=== PATIENT | female | born 1990 | race Caucasian/White ===

== ENCOUNTER 2024-10-13 05:45 | Inpatient (IN) | payer OTHER ==
[2024-10-13] MEDS: LACTATED RINGERS SOLUTION 500 ML IV SCH (06:20)
[2024-10-13 06:30] VITALS: BMI 34.9
[2024-10-13] MEDS: LACTATED RINGERS SOLUTION 1,000 ML IV SCH (06:50)
[2024-10-13] MEDS: CITRIC ACID/SODIUM CITRATE 30 ML UNIT-DOSE CUP PO ONE (07:00)
[2024-10-13] MEDS ORDERED: PHENYLEPHRINE HCL 10 MG/1 ML SINGLE DOSE VIAL ONE (07:48)
[2024-10-13] MEDS ORDERED: ceFAZolin SODIUM 1 GM VIAL ONE (07:48)
[2024-10-13] MEDS ORDERED: morphine SULFATE/PF 1 MG/2 ML (2cc Syringe - QUVA) ONE (07:48)
[2024-10-13] MEDS ORDERED: KETOROLAC TROMETHAMINE 30 MG/1 ML VIAL ONE (07:48)
[2024-10-13] MEDS ORDERED: OXYTOCIN 10 UNITS/ML VIAL ONE (07:48)
[2024-10-13] MEDS ORDERED: ONDANSETRON 4 MG/2 ML VIAL ONE (07:48)
[2024-10-13] MEDS ORDERED: FENTANYL CITRATE/PF 50 MCG/ML VIAL ONE (07:49)
[2024-10-13] MEDS ORDERED: ACETAMINOPHEN 325 MG TABLET (FP) PO PRN (10:11)
[2024-10-13] MEDS ORDERED: IBUPROFEN 800 MG/8 ML IJ IVPB PRN (10:11)
[2024-10-13] MEDS: METHYLERGONOVINE MALEATE 0.2 MG/1 ML AMP IM PRN (12:06)
[2024-10-13] MEDS ORDERED: OXYTOCIN 20 UNITS in 0.9% NS 20 UNIT/1,000 ML INFUS.BAG IV ONE (12:53)
[2024-10-13] MEDS: OXYTOCIN 20 UNITS in 0.9% NS 20 UNIT/1,000 ML INFUS.BAG IV SCH (13:00)
[2024-10-13] MEDS: LACTATED RINGERS SOLUTION 1,000 ML IV ONE (13:39)
[2024-10-13] MEDS ORDERED: oxyCODONE HCL 5 MG TABLET PO PRN (22:11)
[2024-10-14 07:08] LABS: BASO % 0.2 % (0-2.0); EOS % 0.3 % (0-4.5); HEMATOCRIT 33.2 % (32.4-45.2); HEMOGLOBIN 10.6 GM/dL (10.7-15.3); LYMPH % 10.9 % (8-40); MCH 27.9 pg (25.7-33.7); MCHC 32.1 g/dl (32.0-36.0); MEAN PLT VOLUME 8.7 fl (7.5-11.1); MONO % 5.9 % (3.8-10.2); NEUT % 82.7 % (42.8-82.8); PLATELET COUNT 238 10^3/uL (134-434); RBC 3.82 M/mm3 (3.60-5.2); RDW 15.1 % (11.6-15.6); WHITE BLOOD COUNT 14.3 K/mm3 (4.0-10.0)
[2024-10-14] MEDS: FERROUS SO4 325 MG TABLET (FP) PO SCH (09:37)
[2024-10-14] MEDS: PRENATAL VITAMINS W/ FOLIC ACID TABLET (FP) PO SCH (09:37)
[2024-10-14] MEDS: SIMETHICONE 80 MG TAB.CHEW (FP) PO PRN (09:39)
[2024-10-14] MEDS: IBUPROFEN 600 MG TABLET (FP) PO PRN (09:40)
[2024-10-14] MEDS ORDERED: BISACODYL 10 MG SUPP.RECT RC PRN (10:11)
[2024-10-14] MEDS: SENNOSIDES/DOCUSATE COMBO (SENNA PLUS) TABLET (UD) PO PRN (19:48)
[2024-10-14 22:25] VITALS: RESP 18
[2024-10-15] MEDS: oxyCODONE HCL 5 MG TABLET PO PRN (04:27)
[2024-10-16 08:22] VITALS: BP 127/77; PULSE 100; TEMP 98
== END 2024-10-16 11:39 | disposition home or self-care (01) | DRG 788 ==
LOC: JLDR 05:45 → J3W 13:20
PROVIDERS: ADMIT Obstetrics & Gynecology; ATTEND Obstetrics & Gynecology
PROC: 10D00Z1 Extraction of Products of Conception, Low, Open Approach (ICD-10-PCS; principal; 2024-10-13)
DX: O32.1XX0 Maternal care for breech presentation, not applicable or unspecified (principal); O24.420 Gestational diabetes mellitus in childbirth, diet controlled; O36.63X0 Maternal care for excessive fetal growth, third trimester, not applicable or unspecified; Z3A.39 39 weeks gestation of pregnancy; Z37.0 Single live birth
CPT/HCPCS: 36415; 85025; 86850; 86900; 86901; 88307-TC